=== PATIENT | male | born 1965 ===

== ENCOUNTER 2021-04-18 12:43 | Inpatient (IN) ==
[2021-04-18] MEDS ORDERED: ONDANSETRON 4 MG/2 ML VIAL IV PRN (15:14)
[2021-04-18] MEDS ORDERED: SODIUM CHLORIDE 0.9% 1,000 ML IV PRN (15:26)
[2021-04-18 16:32] LABS: INR 1.7; PT Patient Result 18.5 SECS (10.5-12.0)
[2021-04-18] MEDS: cefTRIAXone 2,000 MG in SODIUM CHLORIDE 0.9% 100 ML IV SCH (16:32)
[2021-04-18] MEDS: THIAMINE 100 MG TABLET PO SCH (16:32)
[2021-04-18] MEDS: FOLIC ACID 1 MG TABLET PO SCH (16:32)
[2021-04-18] MEDS: FUROSEMIDE 20 MG/2 ML VIAL IV SCH (16:33)
[2021-04-18 16:39] LABS: Partial Thromboplastin Time 41.8 SECS (23.8-32.1)
[2021-04-18 16:40] LABS: Albumin 1.9 G/DL (3.4-5.0); Bilirubin,Total 2.6 MG/DL (0.20-1.00); Calcium 7.4 MG/DL (8.5-10.1); Osmolality,Calculated 255.2 MOS/KG (273-304); Potassium 3.7 MMOL/L (3.5-5.1); Total Protein 7.5 G/DL (6.4-8.2)
[2021-04-18 18:22] LABS: Basophils % 0.1 % (0.0-0.8); Eosinophils % 0.3 % (0.00-10.9); Immature Granulocytes % 1.3 %; Immature Granulocytes Absolute 0.14 #; Lymphocytes # 1.2 10*3/uL (1.4-4.0); Lymphocytes % 11.1 % (21.2-54.2); Mean Corpuscular HGB Conc 25.6 GM/DL (32-36); Mean Platelet Volume 9.6 FL (9.6-12.0); Monocytes % 15.3 % (1.7-12.7); Neutrophils % 71.9 % (38.7-73.9); Platelet Count 228 T/CUMM (130-400); White Blood Count 11.1 T/CUMM (4-12)
[2021-04-18 18:28] LABS: Hematocrit 11.7 VOL% (42.0-52.0)
[2021-04-18] MEDS: OCTREOTIDE 500 MCG in SODIUM CHLORIDE 0.9% 100 ML IV SCH (18:59)
[2021-04-18] MEDS ORDERED: chlordiazePOXIDE 10 MG CAPSULE PO SCH (21:00)
[2021-04-18 21:11] LABS: Bilirubin,Urine Negative (Negative); Blood, Urine Negative (Negative); Glucose,Urine (UA) Negative (Negative); Ketones,Urine Negative (Negative); Mucus,Urine Occasional /LPF (Occasional); Nitrite,Urine Negative (Negative); Protein,Urine Negative; RBC,Urine 3 /HPF (0-4); Squamous Epithelial Cell,Urine Occasional /HPF (0-10); Urine Appearance CLEAR (Clear); Urine Color Amber (Yellow)
[2021-04-18] MEDS: PANTOPRAZOLE 40 MG VIAL IV SCH (22:13)
[2021-04-18] MEDS: SPIRONOLACTONE 25 MG TABLET PO SCH (22:14)
[2021-04-19] MEDS: OCTREOTIDE 500 MCG in SODIUM CHLORIDE 0.9% 100 ML IV SCH ×3 (03:49→21:49)
[2021-04-19 06:30] LABS: Basophils % 0.2 % (0.0-0.8); Eosinophils # 0.1 10*3/uL (0.0-0.87); Eosinophils % 1.3 % (0.00-10.9); Hematocrit 18.9 VOL% (42.0-52.0); Immature Granulocytes % 1.4 %; Immature Granulocytes Absolute 0.13 #; Lymphocytes # 1.4 10*3/uL (1.4-4.0); Lymphocytes % 14.1 % (21.2-54.2); Mean Corpuscular HGB Conc 29.1 GM/DL (32-36); Mean Corpuscular Volume 71.9 FL (87-102); Mean Platelet Volume 9.3 FL (9.6-12.0); Monocytes % 14.9 % (1.7-12.7); NRBC # 0.21 10*3/uL; Neutrophils % 68.1 % (38.7-73.9); Platelet Count 188 T/CUMM (130-400); Red Blood Count 2.63 MC/CUMM (3.8-5.5); Red Cell Distribution Width 24.9 % (9.3-17.3); White Blood Count 9.6 T/CUMM (4-12)
[2021-04-19 06:37] LABS: Hemoglobin 5.5 GM/DL (14.0-18.0)
[2021-04-19 06:44] LABS: INR 1.8; PT Patient Result 19.2 SECS (10.5-12.0)
[2021-04-19 06:58] LABS: HDL Cholesterol 11 MG/DL (40-60); Risk Ratio 4.55; Triglycerides 46 MG/DL (2-150); VLDL Cholesterol 9.2 MG/DL
[2021-04-19] MEDS ORDERED: SODIUM CHLORIDE 0.9% 1,000 ML IV PRN (07:06)
[2021-04-19 09:39] LABS: Calcium 7.6 MG/DL (8.5-10.1); Osmolality,Calculated 248.6 MOS/KG (273-304); Potassium 3.9 MMOL/L (3.5-5.1)
[2021-04-19] MEDS ORDERED: propofoL 200 MG/20 ML VIAL IV ONE (09:45)
[2021-04-19] MEDS ORDERED: LIDOCAINE 2% 5 ML VIAL ONE (09:45)
[2021-04-19] MEDS ORDERED: ETOMIDATE 20 MG/10 ML VIAL IV ONE (09:45)
[2021-04-19] MEDS ORDERED: LACTATED RINGERS 1,000 ML IV SCH (10:00)
[2021-04-19] MEDS: FOLIC ACID 1 MG TABLET PO SCH (10:48)
[2021-04-19] MEDS: SPIRONOLACTONE 25 MG TABLET PO SCH ×2 (10:48→21:49)
[2021-04-19] MEDS: THIAMINE 100 MG TABLET PO SCH (10:48)
[2021-04-19] MEDS: FUROSEMIDE 20 MG/2 ML VIAL IV SCH ×2 (11:01→15:30)
[2021-04-19] MEDS: PANTOPRAZOLE 40 MG VIAL IV SCH ×2 (11:03→21:48)
[2021-04-19 12:12] LABS: Hematocrit 29.9 VOL% (42.0-52.0); Hemoglobin 9.2 GM/DL (14.0-18.0)
[2021-04-19] MEDS: cefTRIAXone 2,000 MG in SODIUM CHLORIDE 0.9% 100 ML IV SCH (15:30)
[2021-04-19 15:59] LABS: Total Protein,Peritoneal Fluid 1.7 G/DL
[2021-04-19] MEDS ORDERED: MAGNESIUM SULF RIDER 2 GM/50 ML PREMIX IV PRN (16:06)
[2021-04-19] MEDS ORDERED: MAGNESIUM SULF RIDER 4 GM/100 ML PREMIX IV PRN (16:06)
[2021-04-19 16:30] LABS: Neutrophils,Peritoneal Fluid 57 %
[2021-04-19 16:33] LABS: RBC,Peritoneal Fluid 18 T/CUMM
[2021-04-20 05:45] LABS: Basophils % 0.3 % (0.0-0.8); Eosinophils # 0.1 10*3/uL (0.0-0.87); Hematocrit 29.2 VOL% (42.0-52.0); Hemoglobin 9.2 GM/DL (14.0-18.0); Immature Granulocytes % 1.4 %; Immature Granulocytes Absolute 0.16 #; Lymphocytes # 1.4 10*3/uL (1.4-4.0); Lymphocytes % 12.6 % (21.2-54.2); Mean Corpuscular HGB Conc 31.5 GM/DL (32-36); Mean Corpuscular Volume 74.1 FL (87-102); Mean Platelet Volume 9.2 FL (9.6-12.0); Neutrophils % 72.7 % (38.7-73.9); Platelet Count 158 T/CUMM (130-400); Red Blood Count 3.94 MC/CUMM (3.8-5.5); Red Cell Distribution Width 23.2 % (9.3-17.3); White Blood Count 11.2 T/CUMM (4-12)
[2021-04-20 05:57] LABS: Calcium 7.1 MG/DL (8.5-10.1); Osmolality,Calculated 253.4 MOS/KG (273-304); Potassium 3.1 MMOL/L (3.5-5.1)
[2021-04-20 06:33] LABS: Anisocytosis 1+; Platelet Estimate Normal
[2021-04-20 06:34] LABS: Hypochromasia 1+; Polychromasia Slight; Target Cells Few
[2021-04-20] MEDS ORDERED: POTASSIUM CHLORIDE 20 MEQ TABLET PO PRN (09:28)
[2021-04-20] MEDS ORDERED: SPIRONOLACTONE 50 MG TABLET PO SCH (10:00)
[2021-04-20] MEDS: PANTOPRAZOLE 40 MG VIAL IV SCH (10:17)
[2021-04-20] MEDS: FUROSEMIDE 20 MG/2 ML VIAL IV SCH ×2 (10:17→15:42)
[2021-04-20] MEDS: FOLIC ACID 1 MG TABLET PO SCH (10:18)
[2021-04-20] MEDS: THIAMINE 100 MG TABLET PO SCH (10:18)
[2021-04-20] MEDS: DIAZEPAM 5 MG TABLET PO SCH ×2 (10:18→15:42)
[2021-04-20] MEDS: OCTREOTIDE 500 MCG in SODIUM CHLORIDE 0.9% 100 ML IV SCH (10:20)
[2021-04-20] MEDS: SPIRONOLACTONE 25 MG TABLET PO SCH (10:20)
[2021-04-20] MEDS: LACTULOSE 20 GM/30 ML UDCUP PO SCH ×2 (12:04→17:40)
[2021-04-20] MEDS: cefTRIAXone 2,000 MG in SODIUM CHLORIDE 0.9% 100 ML IV SCH (15:41)
[2021-04-20] MEDS: POTASSIUM BICARB EFFERVESCENT 25 MEQ TAB.EFF PO SCH (20:54)
[2021-04-20] MEDS: PANTOPRAZOLE 40 MG TABLET PO SCH (20:55)
[2021-04-20] MEDS ORDERED: DIAZEPAM 5 MG TABLET PO SCH (21:00)
[2021-04-21] MEDS: LACTULOSE 20 GM/30 ML UDCUP PO SCH ×5 (01:17→21:50)
[2021-04-21 06:32] LABS: Basophils % 0.4 % (0.0-0.8); Eosinophils # 0.1 10*3/uL (0.0-0.87); Eosinophils % 1.2 % (0.00-10.9); Hematocrit 28.3 VOL% (42.0-52.0); Hemoglobin 8.8 GM/DL (14.0-18.0); Immature Granulocytes % 0.9 %; Immature Granulocytes Absolute 0.09 #; Lymphocytes # 1.4 10*3/uL (1.4-4.0); Lymphocytes % 13.7 % (21.2-54.2); Mean Corpuscular HGB Conc 31.1 GM/DL (32-36); Mean Corpuscular Volume 75.1 FL (87-102); Mean Platelet Volume 9.3 FL (9.6-12.0); Monocytes % 14.8 % (1.7-12.7); NRBC # 0.03 10*3/uL; Platelet Count 143 T/CUMM (130-400); Red Blood Count 3.77 MC/CUMM (3.8-5.5); Red Cell Distribution Width 23.8 % (9.3-17.3); White Blood Count 10.3 T/CUMM (4-12)
[2021-04-21 06:43] LABS: Calcium 6.8 MG/DL (8.5-10.1); Osmolality,Calculated 255.2 MOS/KG (273-304); Potassium 3.1 MMOL/L (3.5-5.1)
[2021-04-21 07:21] LABS: Platelet Estimate Adequate
[2021-04-21 07:22] LABS: Anisocytosis 3+; Burr Cells Few; Hypochromasia 1+; Ovalocytes Few; Polychromasia Slight; Target Cells Few
[2021-04-21] MEDS: FOLIC ACID 1 MG TABLET PO SCH (10:06)
[2021-04-21] MEDS: PANTOPRAZOLE 40 MG TABLET PO SCH ×2 (10:06→18:07)
[2021-04-21] MEDS: POTASSIUM BICARB EFFERVESCENT 25 MEQ TAB.EFF PO SCH ×2 (10:06→21:50)
[2021-04-21] MEDS: THIAMINE 100 MG TABLET PO SCH (10:06)
[2021-04-21] MEDS: BISACODYL 5 MG TABLET PO SCH ×3 (10:06→23:05)
[2021-04-21] MEDS: SPIRONOLACTONE 100 MG TABLET PO SCH (10:08)
[2021-04-21] MEDS: DIAZEPAM 5 MG TABLET PO SCH ×2 (10:09→21:50)
[2021-04-21] MEDS: FUROSEMIDE 20 MG/2 ML VIAL IV SCH (11:33)
[2021-04-21] MEDS: cefTRIAXone 2,000 MG in SODIUM CHLORIDE 0.9% 100 ML IV SCH (16:42)
[2021-04-21] MEDS ORDERED: POLYETHYLENE GLYCOL POWDER 255 GM BOTTLE PO ONE (18:00)
[2021-04-21] MEDS ORDERED: MAGNESIUM CITRATE 300 ML BOTTLE PO ONE (21:00)
[2021-04-22 04:54] LABS: Basophils % 0.3 % (0.0-0.8); Eosinophils # 0.1 10*3/uL (0.0-0.87); Eosinophils % 0.7 % (0.00-10.9); Hematocrit 31.7 VOL% (42.0-52.0); Hemoglobin 9.7 GM/DL (14.0-18.0); Immature Granulocytes % 0.7 %; Immature Granulocytes Absolute 0.09 #; Lymphocytes % 8.2 % (21.2-54.2); Mean Corpuscular HGB Conc 30.6 GM/DL (32-36); Mean Corpuscular Volume 75.8 FL (87-102); Monocytes % 12.2 % (1.7-12.7); NRBC # 0.02 10*3/uL; Neutrophils % 77.9 % (38.7-73.9); Platelet Count 146 T/CUMM (130-400); Red Blood Count 4.18 MC/CUMM (3.8-5.5); Red Cell Distribution Width 25.1 % (9.3-17.3); White Blood Count 12.4 T/CUMM (4-12)
[2021-04-22 05:14] LABS: PT Patient Result 21.1 SECS (10.5-12.0)
[2021-04-22 05:22] LABS: Calcium 7.4 MG/DL (8.5-10.1); Osmolality,Calculated 260.9 MOS/KG (273-304)
[2021-04-22 05:28] LABS: Hypochromasia 2+; Polychromasia Slight
[2021-04-22 05:29] LABS: Microcytosis 1+; Target Cells Slight
[2021-04-22 05:30] LABS: Platelet Estimate Adequate
[2021-04-22] MEDS: LACTULOSE 20 GM/30 ML UDCUP PO SCH ×3 (05:52→17:35)
[2021-04-22] MEDS ORDERED: LACTATED RINGERS 1,000 ML IV SCH (06:30)
[2021-04-22] MEDS ORDERED: ETOMIDATE 20 MG/10 ML VIAL IV ONE (08:35)
[2021-04-22] MEDS ORDERED: propofoL 200 MG/20 ML VIAL IV ONE ×2 (08:35→09:12)
[2021-04-22] MEDS ORDERED: LIDOCAINE 2% 5 ML VIAL ONE (08:35)
[2021-04-22] MEDS ORDERED: PHENYLEPHRINE 10 MG/1 ML VIAL IV ONE (08:45)
[2021-04-22] MEDS ORDERED: SODIUM CHLORIDE 0.9% 1,000 ML IV PRN ×2 (09:17→14:54)
[2021-04-22] MEDS: THIAMINE 100 MG TABLET PO SCH (12:03)
[2021-04-22] MEDS: PANTOPRAZOLE 40 MG TABLET PO SCH ×2 (12:03→18:22)
[2021-04-22] MEDS: DIAZEPAM 5 MG TABLET PO SCH ×2 (12:03→21:04)
[2021-04-22] MEDS: POTASSIUM BICARB EFFERVESCENT 25 MEQ TAB.EFF PO SCH ×2 (12:03→21:04)
[2021-04-22] MEDS: SPIRONOLACTONE 100 MG TABLET PO SCH (12:03)
[2021-04-22] MEDS: FOLIC ACID 1 MG TABLET PO SCH (12:03)
[2021-04-22] MEDS: cefTRIAXone 2,000 MG in SODIUM CHLORIDE 0.9% 100 ML IV SCH (17:35)
[2021-04-22] MEDS: POTASSIUM CHLORIDE RIDER 10 MEQ/100 ML PREMIX IV PRN ×3 (18:56→23:44)
[2021-04-23] MEDS: LACTULOSE 20 GM/30 ML UDCUP PO SCH ×5 (01:03→23:33)
[2021-04-23] MEDS: POTASSIUM CHLORIDE RIDER 10 MEQ/100 ML PREMIX IV PRN ×4 (01:13→16:48)
[2021-04-23 06:35] LABS: Basophils % 0.3 % (0.0-0.8); Eosinophils # 0.1 10*3/uL (0.0-0.87); Eosinophils % 1.2 % (0.00-10.9); Hematocrit 25.3 VOL% (42.0-52.0); Hemoglobin 7.7 GM/DL (14.0-18.0); Immature Granulocytes % 0.8 %; Immature Granulocytes Absolute 0.07 #; Lymphocytes % 11.1 % (21.2-54.2); Mean Corpuscular HGB Conc 30.4 GM/DL (32-36); Mean Corpuscular Volume 76.7 FL (87-102); Mean Platelet Volume 9.3 FL (9.6-12.0); Monocytes % 10.5 % (1.7-12.7); Neutrophils % 76.1 % (38.7-73.9); Platelet Count 116 T/CUMM (130-400); Red Cell Distribution Width 26.3 % (9.3-17.3); White Blood Count 9.3 T/CUMM (4-12)
[2021-04-23 06:59] LABS: Anisocytosis 2+; Hypochromasia 1+; Platelet Estimate Adequate; Target Cells 1+
[2021-04-23 07:00] LABS: Poikilocytosis Slight
[2021-04-23 07:09] LABS: Calcium 7.5 MG/DL (8.5-10.1); Osmolality,Calculated 258.8 MOS/KG (273-304); Potassium 3.4 MMOL/L (3.5-5.1)
[2021-04-23] MEDS: PANTOPRAZOLE 40 MG TABLET PO SCH ×2 (07:40→18:09)
[2021-04-23 08:34] LABS: INR 1.5
[2021-04-23] MEDS: DIAZEPAM 5 MG TABLET PO SCH ×2 (09:13→22:19)
[2021-04-23] MEDS: THIAMINE 100 MG TABLET PO SCH (09:13)
[2021-04-23] MEDS: FOLIC ACID 1 MG TABLET PO SCH (09:14)
[2021-04-23] MEDS: SPIRONOLACTONE 100 MG TABLET PO SCH (09:14)
[2021-04-23] MEDS: POTASSIUM BICARB EFFERVESCENT 25 MEQ TAB.EFF PO SCH (09:14)
[2021-04-23] MEDS ORDERED: SODIUM CHLORIDE 0.9% 1,000 ML IV PRN (09:35)
[2021-04-23] MEDS: cefTRIAXone 2,000 MG in SODIUM CHLORIDE 0.9% 100 ML IV SCH (17:41)
[2021-04-23 20:29] LABS: Potassium,Urine Random 41 MMOL/L
[2021-04-24] MEDS: LACTULOSE 20 GM/30 ML UDCUP PO SCH ×3 (05:08→17:37)
[2021-04-24 06:38] LABS: Basophils % 0.2 % (0.0-0.8); Eosinophils # 0.1 10*3/uL (0.0-0.87); Eosinophils % 1.2 % (0.00-10.9); Hematocrit 24.4 VOL% (42.0-52.0); Hemoglobin 7.4 GM/DL (14.0-18.0); Immature Granulocytes % 0.9 %; Immature Granulocytes Absolute 0.07 #; Lymphocytes # 1.3 10*3/uL (1.4-4.0); Lymphocytes % 15.5 % (21.2-54.2); Mean Corpuscular HGB Conc 30.3 GM/DL (32-36); Mean Corpuscular Volume 78.7 FL (87-102); Mean Platelet Volume 9.2 FL (9.6-12.0); Monocytes % 10.8 % (1.7-12.7); Neutrophils % 71.4 % (38.7-73.9); Platelet Count 119 T/CUMM (130-400); Red Cell Distribution Width 26.5 % (9.3-17.3); White Blood Count 8.1 T/CUMM (4-12)
[2021-04-24 06:42] LABS: INR 1.6; PT Patient Result 17.4 SECS (10.5-12.0)
[2021-04-24 07:00] LABS: Hypochromasia 2+; Microcytosis 1+; Target Cells Slight
[2021-04-24 07:01] LABS: Platelet Estimate Adequate
[2021-04-24 07:06] LABS: Calcium 7.3 MG/DL (8.5-10.1); Osmolality,Calculated 255.9 MOS/KG (273-304); Potassium 3.5 MMOL/L (3.5-5.1)
[2021-04-24] MEDS ORDERED: SODIUM CHLORIDE 0.9% 1,000 ML IV PRN (09:10)
[2021-04-24] MEDS: PANTOPRAZOLE 40 MG TABLET PO SCH ×2 (10:33→20:51)
[2021-04-24] MEDS: FOLIC ACID 1 MG TABLET PO SCH (10:34)
[2021-04-24] MEDS: SPIRONOLACTONE 100 MG TABLET PO SCH (10:34)
[2021-04-24] MEDS: THIAMINE 100 MG TABLET PO SCH (10:34)
[2021-04-24] MEDS: DIAZEPAM 5 MG TABLET PO SCH ×2 (10:34→20:51)
[2021-04-24 14:15] LABS: Hematocrit 32.6 VOL% (42.0-52.0); Hemoglobin 9.6 GM/DL (14.0-18.0)
[2021-04-24] MEDS: cefTRIAXone 2,000 MG in SODIUM CHLORIDE 0.9% 100 ML IV SCH (17:40)
[2021-04-24 18:08] LABS: Hematocrit 30.1 VOL% (42.0-52.0); Hemoglobin 9.1 GM/DL (14.0-18.0)
[2021-04-25] MEDS: LACTULOSE 20 GM/30 ML UDCUP PO SCH ×5 (00:28→23:48)
[2021-04-25 07:57] LABS: Calcium 7.3 MG/DL (8.5-10.1); Osmolality,Calculated 261.5 MOS/KG (273-304)
[2021-04-25 08:12] LABS: Basophils % 0.2 % (0.0-0.8); Eosinophils # 0.1 10*3/uL (0.0-0.87); Hematocrit 29.3 VOL% (42.0-52.0); Hemoglobin 8.9 GM/DL (14.0-18.0); Immature Granulocytes % 0.6 %; Immature Granulocytes Absolute 0.05 #; Lymphocytes # 1.4 10*3/uL (1.4-4.0); Lymphocytes % 15.8 % (21.2-54.2); Mean Corpuscular HGB Conc 30.4 GM/DL (32-36); Mean Corpuscular Volume 80.1 FL (87-102); Mean Platelet Volume 9.1 FL (9.6-12.0); Monocytes % 11.3 % (1.7-12.7); Neutrophils % 71.1 % (38.7-73.9); Platelet Count 130 T/CUMM (130-400); Red Blood Count 3.66 MC/CUMM (3.8-5.5); Red Cell Distribution Width 25.3 % (9.3-17.3); White Blood Count 9.1 T/CUMM (4-12)
[2021-04-25 08:31] LABS: Platelet Estimate Adequate
[2021-04-25 08:32] LABS: Anisocytosis 2+; Hypochromasia 1+; Macrocytosis 1+; Target Cells Few
[2021-04-25] MEDS: FOLIC ACID 1 MG TABLET PO SCH (09:24)
[2021-04-25] MEDS: THIAMINE 100 MG TABLET PO SCH (09:25)
[2021-04-25] MEDS: SPIRONOLACTONE 100 MG TABLET PO SCH (09:25)
[2021-04-25] MEDS: PANTOPRAZOLE 40 MG TABLET PO SCH ×2 (09:25→20:58)
[2021-04-25] MEDS: FUROSEMIDE 40 MG TABLET PO SCH (09:25)
[2021-04-25] MEDS: DIAZEPAM 5 MG TABLET PO SCH ×2 (09:25→20:58)
[2021-04-25] MEDS ORDERED: BUPIVACAINE MPF 0.25% 30 ML VIAL ONE (10:16)
[2021-04-25] MEDS ORDERED: LIDOCAINE 1%/EPI INJ 20 ML VIAL ONE (10:16)
[2021-04-25] MEDS ORDERED: TISSUE ADHESIVE 1 EACH APPLICATOR TOP ONE (10:16)
[2021-04-25] MEDS ORDERED: HEPARIN 5,000 UNIT/1 ML VIAL ONE (10:16)
[2021-04-25] MEDS ORDERED: LACTATED RINGERS 1,000 ML IV SCH (11:00)
[2021-04-25] MEDS ORDERED: DEXMEDETOMIDINE 200 MCG/2 ML VIAL ONE (11:29)
[2021-04-25] MEDS ORDERED: LIDOCAINE 2% 5 ML VIAL ONE (11:29)
[2021-04-25] MEDS ORDERED: propofoL 200 MG/20 ML VIAL IV ONE (11:29)
[2021-04-25] MEDS ORDERED: PHENYLEPHRINE 1 MG/10 ML SYRINGE IV ONE (11:29)
[2021-04-25] MEDS ORDERED: ceFAZolin 1,000 MG VIAL ONE (11:44)
[2021-04-25] MEDS: cefTRIAXone 2,000 MG in SODIUM CHLORIDE 0.9% 100 ML IV SCH (17:27)
[2021-04-26 04:10] LABS: Basophils % 0.3 % (0.0-0.8); Eosinophils # 0.1 10*3/uL (0.0-0.87); Eosinophils % 1.5 % (0.00-10.9); Hematocrit 31.2 VOL% (42.0-52.0); Hemoglobin 9.5 GM/DL (14.0-18.0); Immature Granulocytes % 0.6 %; Immature Granulocytes Absolute 0.05 #; Lymphocytes # 1.4 10*3/uL (1.4-4.0); Lymphocytes % 15.7 % (21.2-54.2); Mean Corpuscular HGB Conc 30.4 GM/DL (32-36); Mean Corpuscular Volume 80.2 FL (87-102); Mean Platelet Volume 9.6 FL (9.6-12.0); Monocytes % 10.9 % (1.7-12.7); Platelet Count 134 T/CUMM (130-400); Red Blood Count 3.89 MC/CUMM (3.8-5.5); Red Cell Distribution Width 25.4 % (9.3-17.3); White Blood Count 8.7 T/CUMM (4-12)
[2021-04-26 04:33] LABS: Albumin 1.6 G/DL (3.4-5.0); Bilirubin,Total 2.8 MG/DL (0.20-1.00); Calcium 7.1 MG/DL (8.5-10.1); Osmolality,Calculated 257.8 MOS/KG (273-304); Potassium 2.9 MMOL/L (3.5-5.1); Total Protein 6.6 G/DL (6.4-8.2)
[2021-04-26 04:48] LABS: Band Neutrophils 2 % (0-10); Hypochromasia Slight; Lymphocytes 5 % (20-55); Microcytosis Slight; Platelet Estimate Normal; Segmented Neutrophils 85 % (50-85); Total Cells Counted 100
[2021-04-26] MEDS: POTASSIUM CHLORIDE RIDER 10 MEQ/100 ML PREMIX IV PRN ×5 (05:12→12:12)
[2021-04-26] MEDS: LACTULOSE 20 GM/30 ML UDCUP PO SCH ×2 (05:13→12:12)
[2021-04-26] MEDS: PANTOPRAZOLE 40 MG TABLET PO SCH (09:40)
[2021-04-26] MEDS: FOLIC ACID 1 MG TABLET PO SCH (09:40)
[2021-04-26] MEDS: THIAMINE 100 MG TABLET PO SCH (09:40)
[2021-04-26] MEDS: FUROSEMIDE 40 MG TABLET PO SCH (09:40)
[2021-04-26] MEDS: SPIRONOLACTONE 100 MG TABLET PO SCH (09:40)
[2021-04-26] MEDS: DIAZEPAM 5 MG TABLET PO SCH (09:41)
[2021-04-26] MEDS ORDERED: POTASSIUM CHLORIDE 20 MEQ TABLET PO ONE (11:00)
[2021-04-26] MEDS ORDERED: RIFAXIMIN 550 MG TABLET PO SCH (11:00)
[2021-04-26 15:52] VITALS: BP 108/73
[2021-04-26] MEDS ORDERED: DESITIN 4OZ/NYSTATIN 15 GRAM MIXTURE PASTE TOP SCH (21:00)
[2021-04-28 03:59] LABS: Free PSA/PSA Ratio 0.19 ratio
== END 2021-04-26 17:58 | disposition home health service (06) | DRG 356 ==
LOC: N.5E 14:24 → SUATTDRO 14:24
PROVIDERS: ADMIT Internal Medicine; ATTEND Internal Medicine
PROC: COLONHP (2021-04-22 12:35)